=== PATIENT | male | born 1995 | race African-American/Black ===

== ENCOUNTER 2018-03-04 17:46 | Emergency (ER) | payer MEDICAID ==
[2018-03-04] MEDS ORDERED: AMOXICILLIN TR/POT CLAVULANATE 500-125 MG TAB PO ONE (18:14)
[2018-03-04] MEDS ORDERED: LIDOCAINE 1% INJ-PF (10 MG/ML) 30 ML SDV INJ ONE (18:14)
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
[2018-03-04 20:27] VITALS: BP 126/71
== END 2018-03-04 20:27 | disposition home or self-care (01) ==
LOC: ER 17:46
DX: S01.05XA Open bite of scalp, initial encounter (principal); Y04.1XXA Assault by human bite, initial encounter; Y92.238 Other place in hospital as the place of occurrence of the external cause; F17.200 Nicotine dependence, unspecified, uncomplicated
CPT/HCPCS: 99284; J3490